=== PATIENT | female | born 1960 | race Caucasian/White ===

== ENCOUNTER 2016-09-13 17:18 | Observation (INO) | payer OTHER ==
[~2016-09-13] VITALS: Ht 167.6 cm; Wt 86.2 kg
[2016-09-13 19:24] LABS: HEMOGLOBIN 14.2 gm/dl (12.3-15.3); RED BLOOD COUNT 4.46 M/UL (4.00-5.10); WHITE BLOOD COUNT 6.7 K/UL (4.5-11.0)
[2016-09-13 19:41] LABS: BUN/CREATININE RATIO 20 (0-10)
[2016-09-14] MEDS ORDERED: ASPIRIN81 MG PO (02:21)
[2016-09-14] MEDS ORDERED: MIRALAX17 GM PO (02:22)
[2016-09-14] MEDS ORDERED: CRESTOR20 MG PO (02:22)
[2016-09-14] MEDS ORDERED: LASIX40 MG PO (02:22)
[2016-09-14] MEDS ORDERED: RISPERDAL0.25 MG PO (02:23)
[2016-09-14] MEDS ORDERED: KLOR-CON M1010 MEQ PO (02:23)
[2016-09-14] MEDS ORDERED: VENTOLIN/PROVE0.5 ML INH (02:24)
[2016-09-14] MEDS ORDERED: FLOVENT DISKUS50 MCG INH (02:25)
[2016-09-14] MEDS ORDERED: DIVALPROEX SOD125 MG PO (02:25)
[2016-09-14] MEDS ORDERED: TYLENOL 500 MG500 MG PO (02:26)
[2016-09-14] MEDS ORDERED: VOLTAREN 0.1%2.5 ML TOP (02:28)
[2016-09-14] MEDS ORDERED: BISCOLAX10 MG PO (02:28)
[2016-09-14] MEDS ORDERED: CONSTULOSE10 GM/15 M PO (02:29)
[2016-09-14 04:13] LABS: HEMOGLOBIN 12.8 gm/dl (12.3-15.3); RED BLOOD COUNT 4.11 M/UL (4.00-5.10); WHITE BLOOD COUNT 5.9 K/UL (4.5-11.0)
[2016-09-14 04:35] LABS: BUN/CREATININE RATIO 24 (0-10)
[2016-09-14] MEDS ORDERED: FLONASE 0.05% N16 GM (10:07)
[2016-09-14] MEDS ORDERED: VOLTAREN100 GM TOP (10:15)
[2016-09-14] MEDS ORDERED: CEFUROXIME PO (20:13)
--- NOTE | 2016-09-14 20:40 | NUR ---
1900- DC PENDING [facility] TO CALL BACK FOR AVAILABILITY OF MEDICATION FROM PHARMACY. 2019- SPOKE WITH [facility], SPOKE WITH PHARMACIST DIRECTLY. PATIENT READY TO COME BACK. 2024- SPOKE WITH KEYA TORRES RN AND GAVE REPORT TO NURSE. NO FURTHER NEEDS AT THIS TIME. 2029- PATIENTS FAMILY INFORMED PATIENT IS NOW READY TO GO BACK TO [facility] VERBALIZED UNDERSTANDING.
== END 2016-09-14 20:50 ==
LOC: ER1 17:18 → MED SURG 4 20:29 → ZEROF 20:29 → MED SURG 4 09-14 01:36
PROVIDERS: Physician Assistant; ADMIT Internal Medicine
DX: G93.40 Encephalopathy, unspecified (principal); N39.0 Urinary tract infection, site not specified; H91.90 Unspecified hearing loss, unspecified ear; J44.9 Chronic obstructive pulmonary disease, unspecified; E78.5 Hyperlipidemia, unspecified; M19.90 Unspecified osteoarthritis, unspecified site; R44.1 Visual hallucinations; I10 Essential (primary) hypertension; F17.210 Nicotine dependence, cigarettes, uncomplicated; Z86.73 Personal history of transient ischemic attack (TIA), and cerebral infarction without residual deficits; Z86.69 Personal history of other diseases of the nervous system and sense organs; Z86.79 Personal history of other diseases of the circulatory system; Z79.82 Long term (current) use of aspirin; Z79.899 Other long term (current) drug therapy
CPT/HCPCS: 36415; 70450; 71010; 72131; 80053; 80307; 81001; 83735; 84484; 85025; 87077; 87086; 87186; 93005; 96361; 96365; 99285; G0378; G0480; J0696; J7040; J7050

== ENCOUNTER 2020-05-16 01:49 | Inpatient (IN) | payer OTHER ==
[~2020-05-16] VITALS: Ht 167.6 cm; Wt 77.1 kg
[~2020-05-16 01:49] MED LIST: ASPIRIN81 MG PO; BISCOLAX10 MG PO; CEFUROXIME PO; CONSTULOSE10 GM/15 M PO; CRESTOR20 MG PO; DIVALPROEX SOD125 MG PO; FLONASE 0.05% N16 GM; FLOVENT DISKUS50 MCG INH; KLOR-CON M1010 MEQ PO; LASIX40 MG PO; MIRALAX17 GM PO; RISPERDAL0.25 MG PO; TYLENOL 500 MG500 MG PO; VENTOLIN/PROVE0.5 ML INH; VOLTAREN 0.1%2.5 ML TOP; VOLTAREN100 GM TOP
[2020-05-16 02:31] LABS: HEMOGLOBIN 13.1 gm/dl (12.3-15.3); RED BLOOD COUNT 4.04 M/UL (4.00-5.10); WHITE BLOOD COUNT 13.2 K/UL (4.5-11.0)
[2020-05-16] MEDS ORDERED: BUSPAR 10MG10 MG PO (06:20)
[2020-05-16] MEDS ORDERED: DEPAKOTE250 MG PO (06:20)
[2020-05-16] MEDS ORDERED: VOLTAREN ARTHRI20 GM TP (06:24)
[2020-05-17 03:31] LABS: WHITE BLOOD COUNT 11.9 K/UL (4.5-11.0)
[2020-05-17 03:38] LABS: HEMOGLOBIN 10.6 gm/dl (12.3-15.3); RED BLOOD COUNT 3.37 M/UL (4.00-5.10)
[2020-05-17 03:48] LABS: BUN/CREATININE RATIO 32 (0-10)
[2020-05-18 02:19] LABS: HEMOGLOBIN 10.8 gm/dl (12.3-15.3); RED BLOOD COUNT 3.42 M/UL (4.00-5.10)
[2020-05-18 02:23] LABS: WHITE BLOOD COUNT 7.4 K/UL (4.5-11.0)
[2020-05-18 02:37] LABS: BUN/CREATININE RATIO 29 (0-10)
[2020-05-19 03:20] LABS: HEMOGLOBIN 10.5 gm/dl (12.3-15.3); RED BLOOD COUNT 3.37 M/UL (4.00-5.10); WHITE BLOOD COUNT 5.9 K/UL (4.5-11.0)
[2020-05-19 03:55] LABS: BUN/CREATININE RATIO 15 (0-10)
[2020-05-20 04:15] LABS: RED BLOOD COUNT 3.21 M/UL (4.00-5.10); WHITE BLOOD COUNT 5.1 K/UL (4.5-11.0)
[2020-05-20 04:22] LABS: BUN/CREATININE RATIO 18 (0-10)
[2020-05-20] MEDS ORDERED: AMOX TR-K CLV1 EAC4 PO (12:33)
== END 2020-05-20 17:00 | disposition other institution (70) | DRG 871 ==
LOC: ER1 01:49 → CDU 05:54 → M/S 21:45
PROVIDERS: Family Medicine; Internal Medicine; ADMIT Internal Medicine
DX: A41.9 Sepsis, unspecified organism (principal); J18.9 Pneumonia, unspecified organism; N39.0 Urinary tract infection, site not specified; I69.351 Hemiplegia and hemiparesis following cerebral infarction affecting right dominant side; K21.9 Gastro-esophageal reflux disease without esophagitis; J44.9 Chronic obstructive pulmonary disease, unspecified; M81.0 Age-related osteoporosis without current pathological fracture; F41.9 Anxiety disorder, unspecified; F01.50 Vascular dementia, unspecified severity, without behavioral disturbance, psychotic disturbance, mood disturbance, and anxiety; Z20.822 Contact with and (suspected) exposure to COVID-19; D72.829 Elevated white blood cell count, unspecified; I69.320 Aphasia following cerebral infarction
CPT/HCPCS: 0240U; 36415; 36600; 71045; 80053; 81001; 82803; 83605; 83690; 83735; 85025; 87040; 92526; 92610; 93005; 96365; 96375; 99285; J0456; J0696; J1335; J1650; J1885; J2185; J7030; U0002

== ENCOUNTER 2020-09-27 15:51 | Emergency (ER) | payer OTHER ==
[~2020-09-27 15:51] MED LIST changes: +AMOX TR-K CLV1 EAC4 PO; +BUSPAR 10MG10 MG PO; +DEPAKOTE250 MG PO; +VOLTAREN ARTHRI20 GM TP
[2020-09-27 16:36] LABS: HEMOGLOBIN 11.2 gm/dl (12.3-15.3); RED BLOOD COUNT 3.6 M/UL (4.00-5.10); WHITE BLOOD COUNT 9.3 K/UL (4.5-11.0)
[2020-09-27 16:50] LABS: BUN/CREATININE RATIO 15 (0-10)
[2020-09-27 18:00] LABS: BORDETELLA PARAPERTUSSIS Not Detected (Not Detectd); BORDETELLA PERTUSSIS Not Detected (Not Detectd); CHLAMYDIA PNEUMONIAE Not Detected (Not Detectd); CORONAVIRUS HKU1 Not Detected (Not Detectd); CORONAVIRUS NL63 Not Detected (Not Detectd); CORONAVIRUS OC43 Not Detected (Not Detectd); CORONOAVIRUS 229E Not Detected (Not Detectd); HUMAN METAPNEUMOVIRUS Not Detected (Not Detectd); HUMAN RHINOVIRUS/ENTEROVIRUS Not Detected (Not Detectd); INFLUENZA A Not Detected (Not Detectd); INFLUENZA B Not Detected (Not Detectd); MYCOPLASMA PNEUMONIAE Not Detected (Not Detectd); PARAINFLUENZA VIRUS 1 Not Detected (Not Detectd); PARAINFLUENZA VIRUS 2 Not Detected (Not Detectd); PARAINFLUENZA VIRUS 3 Not Detected (Not Detectd); PARAINFLUENZA VIRUS 4 Not Detected (Not Detectd); RESPIRATORY SYNCYTIAL VIRUS Not Detected (Not Detectd)
[2020-09-27 19:12] LABS: SARS-CoV-2 NOT DETECTED (Not Detectd)
[2020-09-27] MEDS ORDERED: OMNICEF 300 MG300 MG PO (20:44)
[2020-09-28 05:33] LABS: ACINETOBACTER BAUMANNII Not Detected (Negative); CANDIDA ALBICANS Not Detected (Negative); CANDIDA KRUSEI Not Detected (Negative); CANDIDA TROPICALIS Not Detected (Negative); ENTEROCOCCUS Not Detected (Negative); HAEMOPHILUS INFLUENZAE Not Detected (Negative); KLEBSIELLA OXYTOCA Not Detected (Negative); KLEBSIELLA PNEUMONIAE Not Detected (Negative); KPC-CARBAPENEM-RESISTANCE GENE Not Detected (Negative); PROTEUS Not Detected (Negative); PSEUDOMONAS AERUGINOSA Not Detected (Negative); SERRATIA MARCESANS Not Detected (Negative); STAPHYLOCOCCUS Not Detected (Negative); STAPHYLOCOCCUS AUREUS Not Detected (Negative); STREP AGALACTIAE (GROUP B) Not Detected (Negative); STREP PYOGENES (GROUP A) Not Detected (Negative); STREPTOCOCCUS Not Detected (Negative); mecA (METHICILLIN RESIST GENE Not Detected (Negative); vanA/B (VANCOMYCIN RESIST GENE Not Detected (Negative)
[2020-09-28 06:58] LABS: ESCHERICHIA COLI DETECTED (Negative)
== END 2020-09-27 21:47 ==
LOC: ER1 15:51
PROVIDERS: Emergency Medicine
DX: N39.0 Urinary tract infection, site not specified (principal); Z86.73 Personal history of transient ischemic attack (TIA), and cerebral infarction without residual deficits; Z20.822 Contact with and (suspected) exposure to COVID-19
CPT/HCPCS: 71045; 80053; 81001; 83605; 83690; 83735; 84100; 85025; 85610; 85730; 87040; 87077; 87086; 87150; 87186; 87633; 93005; 96374; 99285; J0696; Q9967